=== PATIENT | male | born 1940 | race Caucasian/White ===

== ENCOUNTER 2016-12-13 14:28 | Inpatient (IN) ==
[2016-12-13 15:40] LABS: Bilirubin,Urine Negative (Negative); Blood,Urine Negative (Negative); Clarity,Urine Clear (Clear); Color,Urine Yellow (Yellow); Glucose,Urine (UA) Normal (Normal); Ketones,Urine Negative (Negative); Leukocyte Esterase,Urine Negative (Negative); Nitrite,Urine Negative (Negative); Protein,Urine Negative (Neg-Trace); Urobilinogen,Urine Normal (Normal)
[2016-12-13 15:58] LABS: Basophils % 0.9 %; Eosinophils # 0.1 K/mcL (0.0-0.6); Eosinophils % 3.4 %; Hematocrit 40.1 % (37.5-50.1); Hemoglobin 12.8 g/dL (12.9-16.9); Immature Granulocytes % 0.3 % (0-4); Lymphocytes # 0.9 K/mcL (0.6-4.6); Lymphocytes % 25.3 %; Mean Corpuscular HGB Conc 31.9 g/dL (31.6-35.5); Mean Corpuscular Hemoglobin 25.5 pg (28.0-33.3); Mean Corpuscular Volume 79.9 fL (83.0-100.0); Mean Platelet Volume 10.8 fL (9.4-12.4); Monocytes # 0.4 K/mcL (0.0-1.3); Monocytes % 10.2 %; Neutrophils # 2.1 K/mcL (1.6-8.9); Platelet Count 239 K/mcL (140-400); Red Blood Count 5.02 M/mcL (4.19-5.50); Red Cell Distribution Width 14.8 % (11.5-14.5); Segmented Neutrophils % 59.9 %
--- NOTE | 2016-12-13 16:05 | Emergency Department Note ---
Disposition Clinical Impression: Acute electrocardiogram changes Syncope Qualifiers: Syncope type: unspecified Qualified Code(s): R55 - Syncope and collapse Disposition: Admitted As Inpatient Condition: Fair Time of Disposition: 18:02 Syncope HPI - General Chief Complaint: ED Syncope Stated Complaint: syncope, fall, needs repeat CT Time Seen by Provider: 12/13/16 14:40 Source: patient, EMS Limitations: no limitations Nursing Notes Reviewed: Yes Vital Signs Reviewed: Yes - History of Present Illness HPI Narrative: 76-year-old male with history of CAD status post stents 3, on aspirin and Plavix, he had an episode of syncope that he does not remember what the program was, he was just on the ground his said that he was passed out for 5 minutes, he arrives via EMS from the [facility], they did a CT scan that showed a questionable early subdural, and otherwise negative cardiac workup, Pt Subjective Complaint: loss of consciousness Onset (ago): hour(s) Duration: minutes(s) (5) Prodromal Symptoms: none Witnessed: no Injuries Sustained Associated with Event: none Current Symptoms: none History: none Treatments prior to arrival: none - Related Data Home Medications Medication Instructions Recorded Confirmed Aspirin Enteric Coated [Aspirin EC] 81 mg PO DAILY 01/29/15 12/13/16 Atorvastatin Calcium [Lipitor] 80 mg PO HS 01/29/15 12/13/16 Clopidogrel [Plavix] 75 mg PO DAILY 01/29/15 12/13/16 Omeprazole [Prilosec] 20 mg PO DAILY 01/29/15 12/13/16 Cholecalciferol (D-3) [Vitamin D] 1,000 unit PO DAILY 12/13/16 12/13/16 DiphenhydraMINE [Benadryl] 50 mg PO TID PRN 12/13/16 12/13/16 Gabapentin [Neurontin] 900 mg PO TID 12/13/16 12/13/16 GuaiFENesin/Dextromethorphan 10 ml PO Q4H PRN 12/13/16 12/13/16 [Tussin Dm Syrup] Levothyroxine [Synthroid] 112 mcg PO 0612/13/16 12/13/16 Methocarbamol [Robaxin] 500 mg PO QID 12/13/16 12/13/16 Mirtazapine 7.5 mg PO HS 12/13/16 12/13/16 Naproxen [Naprosyn] 500 mg PO BID PRN 12/13/16 12/13/16 Venlafaxine XR (24 HR) [Effexor XR] 75 mg PO DAILY 12/13/16 12/13/16 Allergies Allergy/AdvReac Type Severity Reaction Status Date / Time ciprofloxacin [From Cipro] Allergy See Verified 12/13/16 14:34 Comments clams Allergy Swelling Verified 12/13/16 14:34 of Lip/Tongue/Throat All systems ED: reviewed and negative except as stated. Constitutional: Denies: fever, chills, weakness Cardiovascular: Denies: chest pain, palpitations Respiratory: Denies: cough, dyspnea Gastrointestinal: Denies: abdominal pain, nausea Genitourinary: Denies: urgency Musculoskeletal: Denies: back pain Neurological: Reports: other (Syncope). Denies: headache, weakness Psychiatric: Denies: anxiety, depression Endocrine: Denies: fatigue Hematological/Lymphatic: Denies: easy bleeding, easy bruising Past Medical History - Past Medical History Medical history: Reports: coronary artery disease, diabetes, GERD, hyperlipidemia, myocardial infarction Surgical history: Reports: other Psychiatric history: Reports: depression, PTSD - Social History Smoking Status: Former smoker Smokeless Tobacco Status: Yes Alcohol use: Reports: none Drug use: Reports: none Physical Exam Constitutional: Elderly male appears stated age, alert and oriented, in NAD, vital signs reviewed and wnl HEENT: NCAT, sclera anicteric, PERRLA bilaterally Neck: normal inspection, neck is supple, trachea midline Resp: normal chest inspection, CTA bilaterally, no resp distress CV: RRR, no m/g/r GI: normal inspection, Soft, NTND, BS present Neuro: A&O3, CN 2 through 12 grossly intact bilaterally, no gross motor or sensory deficits bilaterally MSK: normal inspection, bilateral UE and LE with normal ROM Skin: No rashes, skin warm, dry, intact - General Limitations: no limitations General appearance: alert, in no apparent distress Course Course Narrative: 76-year-old male with syncope, on our EKG he does have some hyperacute T waves and concerning upright QRS in V1, will repeat EKG cardiac workup as well as head CT to evaluate for possible subdural hematoma in the setting of aspirin and Plavix use and reassess - Reevaluation(s) Reevaluation #1: Reevaluation, Jesu spoke with the patient, please see her documentation , she recommended admission and we did admit to the hospitalist service, however the patient refused understanding that the risks include but are not limited to and disability from possible cardiac etiology for his syncope understood these risks, and requested to sign out. AGAINST MEDICAL ADVICE Time: 17:12 Reevaluation #2: After long discussion with the patient, he now agrees to stay for admission, cardiology consultation and further evaluation given his EKG changes. Syncopal history history of CAD, patient changed his mind, I did discuss this with the hospitalist via pager, patient stable at the time of the disposition for inpatient admission Time: 18:01 - Consultations Consultation #1: I spoke with Dr. Mcleod, she noted the EKG changes, recommended a repeat EKG however do not think there is any acute ischemic eval she stated that the patient had first-degree AV block right ventricular conduction delay different than 2015 with T waves that are prominent but also seen on the EKG in 2014 no acute findings on today's EKG Time: 17:11 Vital Signs Temperature 98.4 F 12/13/16 14:34 Pulse Rate 57 12/13/16 14:34 Respiratory Rate 17 12/13/16 14:34 Blood Pressure 164/50 12/13/16 14:34 O2 Sat by Pulse Oximetry 100 12/13/16 14:34 Temperature 98.4 F 12/13/16 14:34 Pulse Rate 55 12/13/16 17:38 Respiratory Rate 17 12/13/16 17:53 Blood Pressure 173/88 12/13/16 17:53 O2 Sat by Pulse Oximetry 98 12/13/16 17:38 Oxygen Delivery Oxygen Delivery Room Air Syncope - [facility] Narrative Medical decision making narrative: 76-year-old male with a concerning history of syncope in the setting of known CAD, status post 3 stents, patient advised for 5 minutes, his EKG showed hyperacute T waves early repolarization upright leads in V1 concern for De winter's ischemic changes in V2 and V3 however clinical documentation developer did review the EKG I did place cardiology consult is initial troponin at the [place] repeat troponin was 0.03, negative. Patient seemed dynamically stable, initially requests to go AGAINST MEDICAL ADVICE and then subsequently accepted inpatient admission for further cardiology workup - Differential Diagnosis Likely: syncope due to orthostatic hypotension, vasovagal syncope - Medical Records Medical records reviewed: Yes I reviewed the patient's medical records. - Lab Data Lab results reviewed: Yes I reviewed the patient's lab results. Result diagrams: 12/13/16 15:50 12/13/16 15:50 Lab Results 12/13/16 12/13/16 12/13/16 Range/Units 15:17 15:50 15:50 WBC 3.5 L (4.3-11.1) K/mcL RBC 5.02 (4.19-5.50) M/mcL Hgb 12.8 L (12.9-16.9) g/dL Hct 40.1 (37.5-50.1) % MCV 79.9 L (83.0-100.0) fL MCH 25.5 L (28.0-33.3) pg MCHC 31.9 (31.6-35.5) g/dL RDW 14.8 H (11.5-14.5) % Plt Count 239 (140-400) K/mcL MPV 10.8 (9.4-12.4) fL Immature Gran % 0.3 (0-4) % Seg Neutrophils % 59.9 % Lymphocytes % 25.3 % Monocytes % 10.2 % Eosinophils % 3.4 % Basophils % 0.9 % Neutrophils # 2.1 (1.6-8.9) K/mcL Lymphocytes # 0.9 (0.6-4.6) K/mcL Monocytes # 0.4 (0.0-1.3) K/mcL Eosinophils # 0.1 (0.0-0.6) K/mcL Basophils # 0.0 (0.0-0.2) K/mcL Sodium 134 L (136-145) mEq/L Potassium 4.5 (3.5-4.5) mEq/L Chloride 99 (98-109) mEq/L Carbon Dioxide 27 (19-29) mEq/L BUN 16 (8-26) mg/dL Creatinine 1.13 (0.72-1.25) mg/dL Est GFR ( Amer) > 60 (> 60) Est GFR (Non-Af Amer) > 60 (> 60) BUN/Creatinine Ratio 14 (6-26) Glucose 86 (70-99) mg/dL Calculated Osmolality 278 L (280-300) Calcium 9.9 (8.6-10.8) mg/dL Troponin I (0-0.03) ng/mL Urine Color Yellow (Yellow) Urine Clarity Clear (Clear) Urine pH 7.0 (5.0-8.0) pH Units Ur Specific [place] 1.010 (1.010-1.025) Urine Protein Negative (Neg-Trace) mg/dL Urine Glucose (UA) Normal (Normal) mg/dL Urine Ketones Negative (Negative) mg/dL Urine Blood Negative (Negative) Urine Nitrite Negative (Negative) Urine Bilirubin Negative (Negative) Urine Urobilinogen Normal (Normal) mg/dL Ur Leukocyte Esterase Negative (Negative) 12/13/16 Range/Units 15:50 WBC (4.3-11.1) K/mcL RBC (4.19-5.50) M/mcL Hgb (12.9-16.9) g/dL Hct (37.5-50.1) % MCV (83.0-100.0) fL MCH (28.0-33.3) pg MCHC (31.6-35.5) g/dL RDW (11.5-14.5) % Plt Count (140-400) K/mcL MPV (9.4-12.4) fL Immature Gran % (0-4) % Seg Neutrophils % % Lymphocytes % % Monocytes % % Eosinophils % % Basophils % % Neutrophils # (1.6-8.9) K/mcL Lymphocytes # (0.6-4.6) K/mcL Monocytes # (0.0-1.3) K/mcL Eosinophils # (0.0-0.6) K/mcL Basophils # (0.0-0.2) K/mcL Sodium (136-145) mEq/L Potassium (3.5-4.5) mEq/L Chloride (98-109) mEq/L Carbon Dioxide (19-29) mEq/L BUN (8-26) mg/dL Creatinine (0.72-1.25) mg/dL Est GFR ( Amer) (> 60) Est GFR (Non-Af Amer) (> 60) BUN/Creatinine Ratio (6-26) Glucose (70-99) mg/dL Calculated Osmolality (280-300) Calcium (8.6-10.8) mg/dL Troponin I 0.03 (0-0.03) ng/mL Urine Color (Yellow) Urine Clarity (Clear) Urine pH (5.0-8.0) pH Units Ur Specific [place] (1.010-1.025) Urine Protein (Neg-Trace) mg/dL Urine Glucose (UA) (Normal) mg/dL Urine Ketones (Negative) mg/dL Urine Blood (Negative) Urine Nitrite (Negative) Urine Bilirubin (Negative) Urine Urobilinogen (Normal) mg/dL Ur Leukocyte Esterase (Negative) - Radiology Data Radiology results reviewed: Yes I reviewed the patient's radiology results. Head CT 12/13/16 15:01 IMPRESSION: No acute intracranial abnormality. D/ / Dylan Dillon MD / Dylan Dillon MD Interpreting Provider: Dylan Dillon MD Chest X-Ray 12/13/16 16:21 IMPRESSION: No acute cardiopulmonary disease. D/ / Albert Atkinson MD / Albert Atkinson MD Interpreting Provider: Albert Atkinson MD - EKG Data EKG attestation: Yes I reviewed and interpreted this EKG. EKG shows normal: sinus rhythm Rate: normal (57 bpm ME to 67 QRS [address] segment elevations or depressions, first-degree AV block with right bundle branch block, hyperacute T waves in leads V2 and V3 1445;, repeat EKG at 1548 shows similar pattern with no acute ST segment changes) Counselor/QRS: normal Interpretation: nonspecific ST-T wave changes (Change from EKG in 2015) - Core Measures AMI Core Measures Followed: No Attestation Statement - Attestation Attestation: I personally interviewed and examined this patient and my medical decision- making was reviewed with the ED Resident Physician, Dr. Hernandez I agree with the documented findings, disposition and treatment plan as described except to the extent set forth below. Patient is a 76-year-old white male who was brought to us as a transfer from the [facility] by EMS for "request for repeat head CT". Patient with history of CAD and stent placement 3, who presents to the emergency department after having a syncopal episode today. [facility], labs, which were reported as "normal" and a head CT which the physician by phone and stated that there was some tiny defect seen between the dura and the skull and the etiologies was requesting repeat imaging. The doctor there stated he was going to send the patient home but was unable to get repeat CT imaging and their facility would not keep the patient for observation for repeat imaging. Patient describes syncopal episode with no preceding symptoms in which his reports that he was unresponsive for up to 5 minutes. Patient had no symptoms following the episode. On arrival he denies any complaints of pain, no chest pain or pressure no shortness of breath, no diaphoresis, no nausea vomiting, no abdominal pain or flank pain, no bowel changes or urinary symptoms. Patient denies any dizziness or lightheadedness with positional changes. Patient denies any headaches or visual changes and no focal neurologic deficits either before or since the incident. Patient's vital signs are stable on arrival and he is in no acute distress. His EKG obtained in the emergency department on arrival was significantly different from his prior EKG which shows what appears to be a right bundle branch block with T-wave concordance. This is significantly changed from his initial EKG. We reevaluated the patient and patient denies any form of chest pain pressure or heaviness at this time. We also repeated the EKG and saw similar findings. We faxed the EKG to the clinical documentation developer on-call today Dr. Ora lancaster who interpreted the EKG and states that she felt this was related to bundle branch and conduction abnormalities in [place] for ischemic change and recommended serial cardiac enzymes. I agree with patient's physical exam findings as documented. Labs as well as chest x-ray and repeat CT head imaging here were all within normal limits. Concerned with patient's syncopal episode associated with an abnormal EKG which is new. Recommended the patient be admitted for further cardiac evaluation and continued monitoring. Patient agrees with plan case discussed with hospitalist and cardiology consulted.
[2016-12-13 16:11] LABS: BUN/Creatinine Ratio 14 (6-26); Blood Urea Nitrogen 16 mg/dL (8-26); Calcium 9.9 mg/dL (8.6-10.8); Carbon Dioxide 27 mEq/L (19-29); Chloride 99 mEq/L (98-109); Glucose 86 mg/dL (70-99); Osmolality,Calculated 278 (280-300); Potassium 4.5 mEq/L (3.5-4.5); Sodium 134 mEq/L (136-145); eGFR For African Americans > 60 (> 60); eGFR For Non-African Americans > 60 (> 60)
[2016-12-13] MEDS ORDERED: Naloxone 0.4 MG/ML INJ IVP PRN (21:36)
--- NOTE | 2016-12-13 21:36 | Internal Med History&Physical ---
Date of Encounter: 12/13/16 Time of Encounter: 21:36 Assessment and Plan (1) Syncope Current visit: Yes Status: Acute Cause is unknown at this time. Will obtain orthostatic vitals; echocardiogram, EEG, Cardiology consult. Consider MRI / Neurology consult based on EEG Qualifiers: Syncope type: unspecified Qualified Code(s): R55 - Syncope and collapse (2) Type 2 diabetes mellitus Current visit: Yes Status: Chronic Sliding scale insulin Qualifiers: Diabetes mellitus complication status: with unspecified complications Diabetes mellitus jail insulin use: without jail use Qualified Code( s): E11.8 - Type 2 diabetes mellitus with unspecified complications (3) CAD (coronary artery disease) Current visit: Yes Status: Chronic Continue home medications. Check Troponin Qualifiers: Coronary Disease-Associated Artery/Lesion type: unspecified vessel or lesion type [place] vs. transplanted heart: [place] heart Associated angina: without angina Qualified Code(s): I25.10 - Atherosclerotic heart disease of [place] coronary artery without angina pectoris (4) Hypothyroidism Current visit: Yes Status: Chronic Continue Synthroid Qualifiers: Hypothyroidism type: unspecified Qualified Code(s): E03.9 - Hypothyroidism , unspecified Internal Medicine - H&P: HPI Chief complaint: syncope Admitted From: Emergency Dept Plans for Post Hospital Care: Home History of present illness: Mr. Nina is a 76 year old male with history of CAD status post stents 3, hypothyroidism, PTSD, type 2 diabetes mellitus, hypertension, depression, apparently had an episode of syncope at home. He was planning to go out to shop , but apparently fell backwards and he does not remember what happened. His fiancee was closed by, apparently patient reportedly passed out for about 5 minutes. Pt reports that his fiance apparently told him that he had some shaking of upper extremities. He denies dizziness and a running symptoms before the episode. He denies chest pain, shortness of breath, cough, expectoration, headache, nausea, vomiting, fever, chills. He was evaluated at [facility] and CT head reported subtle subcalvarial hyperattenuating foci redundantly in the left pectoral region and most likely artifactual. However given subtle overlapping scalp edema, very tiny extra-axial hemorrhage be difficult to entirely exclude. Consider short-term repeat CT for re- assessment to exclude subtle extra-axial subdural hematoma. Patient is transferred to ER at [facility]. Repeat CT head shows no acute intracranial abnormality. Patient is admitted to the hospitalist service for further workup and management of his syncope. Past Med Surg Social Fam HX - Past Medical History Medical history: coronary artery disease, diabetes, GERD, hyperlipidemia, myocardial infarction Psychiatric history: depression, PTSD - Past Surgical History Surgical History: other - Social History Smoking Status: Former smoker Smokeless Tobacco Status: Yes Alcohol use: none Drug use: none - Family History Father Hx Family Cancer: Yes (unknown) Internal Medicine - H&P: Meds Aspirin Enteric Coated [Aspirin EC] 81 mg PO DAILY 01/29/15 [History] Atorvastatin Calcium [Lipitor] 80 mg PO HS 01/29/15 [History] Clopidogrel [Plavix] 75 mg PO DAILY 01/29/15 [History] Omeprazole [Prilosec] 20 mg PO DAILY 01/29/15 [History] Cholecalciferol (D-3) [Vitamin D] 1,000 unit PO DAILY 12/13/16 [History] DiphenhydraMINE [Benadryl] 50 mg PO TID PRN 12/13/16 [History] Gabapentin [Neurontin] 900 mg PO TID 12/13/16 [History] GuaiFENesin/Dextromethorphan [Tussin Dm Syrup] 10 ml PO Q4H PRN 12/13/16 [ History] Levothyroxine [Synthroid] 112 mcg PO 0630 12/13/16 [History] Methocarbamol [Robaxin] 500 mg PO QID 12/13/16 [History] Mirtazapine 7.5 mg PO HS 12/13/16 [History] Naproxen [Naprosyn] 500 mg PO BID PRN 12/13/16 [History] Venlafaxine XR (24 HR) [Effexor XR] 75 mg PO DAILY 12/13/16 [History] Allergies ciprofloxacin [From Cipro] Allergy (Verified 12/13/16 14:34) See Comments patient unsure of reaction clams Allergy (Verified 12/13/16 14:34) Swelling of Lip/Tongue/Throat All Systems PM: A 10-system review of systems was performed and is negative for pertinent findings except as documented above in the HPI. - Constitutional Vitals: Temp Pulse Resp BP Pulse Ox 97.6 F 57 14 165/84 99 12/13/16 19:24 12/13/16 19:24 12/13/16 19:24 12/13/16 19:24 12/13/16 19:24 Exam: General: Not in acute distress at the time of my evaluation HEENT: Oral mucosa is moist. No conjunctival palor or scleral icterus. Small laceration on the left occipital scalp area Neck: No obvious neck swellings Lungs: Clear to auscultation Cardiac: Regular rate and rhythm. No significant murmurs Abdomen: Soft, non tender. Bowel sounds present Genitourinary: No jones catheter Neurological: Alert and oriented. No gross localizing deficits Psych: Not aggressive or agitated Extremities: no significant leg edema Skin: No generalized rash Internal Med - H&P Results - Labs CBC & Chem 7: 12/14/16 03:18 12/14/16 03:18 Labs: UA is negative - EKG Data -: EKG Interpreted by Myself EKG shows normal: sinus rhythm Rate: bradycardia - EKG Data EKG comments: First degree AV block; RBBB 12/14/16 06:55 - Impressions ITS Impressions Head CT 12/13/16 15:01 IMPRESSION: No acute intracranial abnormality. D/ / Dylan Dillon MD / Dylan Dillon MD Interpreting Provider: Dylan Dillon MD Chest X-Ray 12/13/16 16:21 IMPRESSION: No acute cardiopulmonary disease. D/ / Albert Atkinson MD / Albert Atkinson MD Interpreting Provider: Albert Atkinson MD
[2016-12-13] MEDS: Methocarbamol 500 MG TABLET PO SCH (22:42)
[2016-12-13] MEDS: Mirtazapine 15 MG TABLET PO SCH (22:43)
[2016-12-14 03:33] LABS: Basophils % 1.2 %; Eosinophils # 0.2 K/mcL (0.0-0.6); Eosinophils % 6.5 %; Hematocrit 37.2 % (37.5-50.1); Hemoglobin 12.2 g/dL (12.9-16.9); Immature Granulocytes % 0.6 % (0-4); Lymphocytes # 1.1 K/mcL (0.6-4.6); Lymphocytes % 32.4 %; Mean Corpuscular HGB Conc 32.8 g/dL (31.6-35.5); Mean Corpuscular Hemoglobin 26.3 pg (28.0-33.3); Mean Corpuscular Volume 80.2 fL (83.0-100.0); Mean Platelet Volume 10.9 fL (9.4-12.4); Monocytes # 0.5 K/mcL (0.0-1.3); Monocytes % 13.5 %; Neutrophils # 1.6 K/mcL (1.6-8.9); Platelet Count 217 K/mcL (140-400); Red Blood Count 4.64 M/mcL (4.19-5.50); Red Cell Distribution Width 14.7 % (11.5-14.5); Segmented Neutrophils % 45.8 %
[2016-12-14 03:45] LABS: BUN/Creatinine Ratio 18 (6-26); Blood Urea Nitrogen 18 mg/dL (8-26); Calcium 9.3 mg/dL (8.6-10.8); Carbon Dioxide 25 mEq/L (19-29); Chloride 102 mEq/L (98-109); Glucose 103 mg/dL (70-99); Osmolality,Calculated 282 (280-300); Potassium 4.3 mEq/L (3.5-4.5); Sodium 135 mEq/L (136-145); eGFR For African Americans > 60 (> 60); eGFR For Non-African Americans > 60 (> 60)
[2016-12-14] MEDS ORDERED: Dextrose Gel 15 GM PO PRN ×2 (07:00)
[2016-12-14] MEDS ORDERED: D5% in Water 1,000 ML IVC PRN (07:00)
[2016-12-14] MEDS ORDERED: *HR* Dextrose 50 % in Water (Syg) 50 ML SYRINGE IVP PRN (07:00)
[2016-12-14] MEDS: Insulin LISPRO 300 UNITS/3 ML VIAL SQ SCH ×3 (08:27→16:53)
[2016-12-14] MEDS: Venlafaxine XR (24 HR) 75 MG CAP.ER.24H PO SCH (09:16)
[2016-12-14] MEDS: Methocarbamol 500 MG TABLET PO SCH ×4 (09:16→20:36)
[2016-12-14] MEDS: Aspirin Enteric Coated 81 MG Tablet PO SCH (09:16)
[2016-12-14] MEDS: Gabapentin 300 MG CAPSULE PO SCH ×4 (09:16→20:36)
[2016-12-14] MEDS: Cholecalciferol (D-3) 1,000 UNIT TABLET PO SCH (09:17)
--- NOTE | 2016-12-14 09:37 | Cardiology Consult Note ---
Date of Encounter: 12/14/16 Time of Encounter: 08:30 Assessment and Plan (1) Syncope Current Visit: Yes Status: Acute Presents with syncopal episode yesterday, reportedly lost consciousness nearly 5 minutes. Event was unprovoked--occurred while walking to door. No significant findings on telemetry since admission, no AVB, pause, arrhythmia noted. Questionable hemorrhage or hematoma vs. artifact at [place]. Head CT at [facility] negative for acute process. Recommend Neurology consult. Continue to monitor telemetry, check orthostatics, and obtain echocardiogram. Further recommendations to follow. Qualifiers: Syncope type: unspecified Qualified Code(s): R55 - Syncope and collapse (2) Ischemic cardiomyopathy Current Visit: Yes Status: Acute Hx of CAD s/p PCI--patient reports most recent stent at [place] ~2 years ago. Last TTE at [facility] demonstrated a LVEF, 35%. No recent TTE records available. Appears euvolemic upon exam. Troponin negative x3. CXR without acute findings. Concerning ECG changes noted from previous. Continue home CV medications including asa, statin, and plavix. No betablocker due to bradycardia. Echocardiogram pending, further recommendations to follow. Discussion w patient/family: The assessment and plan as outlined above was discussed with the patient and/or family members who expressed understanding and agreement. All questions were answered. Thank you for involving us in the care of your patient. Please call with any questions. History of Present Illness Consult date: 12/14/16 Requesting physician: Esteban Mendiola Consult reason: Syncope Chief complaint: Syncopal episode History of present illness: Mr. Nina is a 76 year old male with PMHx significant for CAD s/p PCI, hypothyroidism, PTSD, DMII, HTN, tongue CA (remission) and depression who initially presented to the [place] urgent care after syncopal episode at home. Patient does not have any recollection of the event, he states he was walking out of the house to go to the grocery store when he suddenly fell backward. Event was witnessed by fiance who stated patient lost consciousness for nearly five minutes and arms were shaking and eyes rolled back in head during event. He notes that he was in his normal state of health up until event and denies any new medications. Reports follows with [place] [facility]. Head CT at [place] inconclusive--questionable small hematoma or hemorrhage vs. artifact, he was sent to [facility] for further evaluation and imaging. Upon arrival to [facility] troponin negative x3. ECG (T wave) changes noted when compared to previous. Prior CV testing ([facility]): TTE 03/2013: LVEF 35%, Normal right ventricular size and function, the apex , apical inferior, mid inferior, apical anterior, apical septal, apical lateral and mid inferior lateral wolfe were hypokinetic.All other wall segments showed normal motion. [facility] 04/09/13: Stent w/ PTCA Single Major Vessel (Occluded proximal circumflex artery) Stent w/ PTCA another major vessel (95% mid LAD stenosis); existing 60-70% mRCA stenosis *patient reports [facility] with stent at [facility] 2 years ago. Past Med Surg Social Fam HX - Past Medical History Medical history: cardiomyopathy (ischemic), CHF (systolic, LVEF 35% per TTE in 2012. ), coronary artery disease, diabetes, GERD, hyperlipidemia, hypertension, myocardial infarction Psychiatric history: depression, PTSD - Past Surgical History Surgical History: angioplasty/stent - Social History Smoking Status: Former smoker Smokeless Tobacco Status: Yes Alcohol use: none (reports former) Drug use: none - Family History Father Hx Family Cancer: Yes (unknown) Medications and Allergies Aspirin Enteric Coated [Aspirin EC] 81 mg PO DAILY 01/29/15 [History] Atorvastatin Calcium [Lipitor] 80 mg PO HS 01/29/15 [History] Clopidogrel [Plavix] 75 mg PO DAILY 01/29/15 [History] Omeprazole [Prilosec] 20 mg PO DAILY 01/29/15 [History] Cholecalciferol (D-3) [Vitamin D] 1,000 unit PO DAILY 12/13/16 [History] DiphenhydraMINE [Benadryl] 50 mg PO TID PRN 12/13/16 [History] Gabapentin [Neurontin] 900 mg PO TID 12/13/16 [History] GuaiFENesin/Dextromethorphan [Tussin Dm Syrup] 10 ml PO Q4H PRN 12/13/16 [ History] Levothyroxine [Synthroid] 112 mcg PO 0630 12/13/16 [History] Methocarbamol [Robaxin] 500 mg PO QID 12/13/16 [History] Mirtazapine 7.5 mg PO HS 12/13/16 [History] Naproxen [Naprosyn] 500 mg PO BID PRN 12/13/16 [History] Venlafaxine XR (24 HR) [Effexor XR] 75 mg PO DAILY 12/13/16 [History] Allergies ciprofloxacin [From Cipro] Allergy (Verified 12/13/16 14:34) See Comments patient unsure of reaction clams Allergy (Verified 12/13/16 14:34) Swelling of Lip/Tongue/Throat All Systems Review: A 10-system review of systems was performed and is negative for pertinent findings except as documented above in the HPI. - Cardiovascular Cardiovascular: as per HPI Physical Examination Vital Signs, Last 4 Hours Temp Pulse Resp BP Pulse Ox 12/14/16 06:36 97.5 F L 48 17 128/74 97 General: Conversant, No Apparent Distress HEENT: Atraumatic, Normocephaly, Mucus Membranes Moist Neck: No JVD, Normal carotid pulses Cardiac: Reg Rate and Rhythm, Normal S1 and S2, No Murmur Lungs: Normal Breath Sounds, No Wheeze, Rales, Rhonchi Neuro: Alert and responsive, No focal deficits noted Abdomen: Soft, Non-Tender Skin: No rashes noted on visualized skin Musculoskeletal: No Chest Wall Tenderness Extremities: No Clubbing, No Cyanosis, No Edema, Normal Pulses Results 12/14/16 03:18 12/14/16 03:18 Lab Results 12/13/16 12/14/16 12/14/16 21:56 03:18 03:18 WBC 3.4 L Hgb 12.2 L Hct 37.2 L Plt Count 217 Sodium Potassium Chloride Carbon Dioxide BUN Creatinine Glucose Calcium Magnesium Troponin I 0.03 0.03 12/14/16 03:18 WBC Hgb Hct Plt Count Sodium 135 L Potassium 4.3 Chloride 102 Carbon Dioxide 25 BUN 18 Creatinine 1.00 Glucose 103 H Calcium 9.3 Magnesium 2.0 Troponin I - Imaging and Cardiology Chest Xray: report reviewed Echo: report reviewed Cardiac cath: report reviewed Other Results: 12 hour tele: avg HR=53 SB, RBBB. - EKG Interpretation EKG results cardiology: personally reviewed Consult Discharge Plan - Plan Instructions: Near Syncope (ED) [facility] [Primary Care Provider] -
--- NOTE | 2016-12-14 13:36 | EEG/EMG/Oth Biometrics Report ---
EEG Procedure Report Date of procedure: 12/14/16 EEG Procedure: Routine EEG Procedure Note: This EEG was acquired with standard international 1020 system with EKG recording. The background EEG activity was characterized by the presence of posterior dominant alpha rhythm with the best frequency up to 9.5 Hz.. The background activity was reactive to eye openings. Sleep stages were characterized by the presence of background fragmentation, vertex waves, K complexes, and sleep spindles. There are no electrographic seizures identified during this tracing. There are no epileptiform discharges and focal slowing noted during this recording. Photic stimulation produced no abnormalities. Hyperventilation procedure was not performed EKG tracing showed no significant cardiac dysrhythmia. Impression: This is essentially a normal awake and asleep EEG. Clinical Correlation: Normal EEGs, however, do not exclude epilepsy. Clinical correlation advised.
--- NOTE | 2016-12-14 13:38 | Electrocardiograph Report ---
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
--- NOTE | 2016-12-14 13:39 | Internal Med Progress Note ---
Date of Encounter: 12/14/16 Time of Encounter: 09:45 - Assessment and plan (1) Syncope Current Visit: Yes Status: Acute Assessment and plan: Patient reports syncopal episode yesterday review was preparing to leave to run an errand, he fell backwards, hit his head. Bystander says that his hands were jerking bilaterally. He has no memory of events at all. He does not report what appears to be a post ictal phase afterwards. He said he was immediately alert and awake without confusion or loss of bowel and bladder control. He has no prior history of this in the past. He does report dizzy spells for the last 2 weeks, he primarily with exertion. He denies chest pain, dizziness, headache , shortness of breath prior to event. Also consciousness was approximately 5 minutes. EEG is not done yet, echocardiogram results are still pending. Cardiology is following. Recommend continuing telemetry and checking TTE. Ischemic evaluation. Depending on the echo findings we will decide upon stress test versus LHC. They will continue to follow. I appreciate the recommendations and consultation. Patient is currently pain-free and denies dizziness, shortness of breath, chest pain, or headache. Continue telemetry Echo results pending Cardio following Head CT 12/13/16 15:01 IMPRESSION: No acute intracranial abnormality. D/ / Dylan Dillon MD / Dylan Dillon MD Interpreting Provider: Dylan Dillon MD Chest X-Ray 12/13/16 16:21 IMPRESSION: No acute cardiopulmonary disease. D/ / Albert Atkinson MD / Albert Atkinson MD Interpreting Provider: Albert Atkinson MD Qualifiers: Syncope type: unspecified Qualified Code(s): R55 - Syncope and collapse (2) Hypothyroidism Current Visit: Yes Status: Chronic Assessment and plan: Chronic. Continue home medications. Qualifiers: Hypothyroidism type: unspecified Qualified Code(s): E03.9 - Hypothyroidism , unspecified (3) CAD (coronary artery disease) Current Visit: Yes Status: Chronic Assessment and plan: Troponins are negative. Continue aspirin, statin, Plavix. Qualifiers: Coronary Disease-Associated Artery/Lesion type: unspecified vessel or lesion type [place] vs. transplanted heart: jackson heart Associated angina: without angina Qualified Code(s): I25.10 - Atherosclerotic heart disease of jack[place] coronary artery without angina pectoris (4) Diabetes Current Visit: No Status: Acute Assessment and plan: Sliding scale insulin. Accu-Cheks before meals at bedtime Diabetic diet Qualifiers: Diabetes mellitus type: type 2 Diabetes mellitus complication status: without complication Diabetes mellitus buttermaker continuous churn insulin use: without correction use Qualified Code(s): E11.9 - Type 2 diabetes mellitus without complications - Time Spent With Patient less than 15 minutes - Subjective Interval history: Patient reports that he was getting ready to leave to run an errand and he fell backwards, hit his head, denise says that his hands were jerking bilaterally. Patient has no memory of the events. She reports approximately 5 minute loss of consciousness, patient does not describe a postictal episode after. He says that he was awake and got right up and denies confusion. Prior to the event he denied headache, dizziness, shortness of breath, chest pain and he has no history of syncope in the past. He reports he has been having dizzy spells for about 2 weeks, states that it is normally with exertion. 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 At this time echo results are not back yet, EEG is still ordered and not done yet. Patient denies chest pain at this time. He also denies any dizziness, shortness of breath, or headache at this time. - Constitutional Vitals: Temp Pulse Resp BP Pulse Ox 98.0 F 53 16 136/72 99 12/14/16 11:23 12/14/16 11:23 12/14/16 11:23 12/14/16 11:23 12/14/16 11:23 General appearance: Present: cooperative, A&O X 3, pleasant, no acute distress, answers questions appropriately - Head Head exam: Present: normal inspection - Eye Eye exam: Present: EOMI, normal appearance, PERRL, conjuntiva pink. Absent: nystagmus - ENT ENT exam: Present: mucous membranes moist, normal exam - Neck Neck exam general surgery: Present: normal inspection. Absent: lymphadenopathy , tenderness - Respiratory Respiratory exam: Present: CTAB. Absent: rales, respiratory distress, rhonchi, stridor, wheezes - Cardiovascular Cardiovascular exam: Present: RRR, +S1, +S2. Absent: diastolic murmur, systolic murmur - GI/Abdominal GI/Abdominal exam: Present: soft. Absent: hepatomegaly, normal bowel sounds, tenderness - Extremities Exam Extremities exam: Present: normal inspection, warm, radial pulses palpable and symetrical. Absent: pedal edema, tenderness - Neurological Exam Neurological exam: Present: alert, oriented X3, no focal deficits, strengths equal and symetr throughout. Absent: facial droop, speech deficit Internal Medicine: Result - Labs CBC & Chem 7: 12/14/16 03:18 12/14/16 03:18 Labs: Short CBC 12/14/16 Range/Units 03:18 WBC 3.4 L (4.3-11.1) K/mcL Hgb 12.2 L (12.9-16.9) g/dL Hct 37.2 L (37.5-50.1) % Plt Count 217 (140-400) K/mcL Neutrophils # 1.6 (1.6-8.9) K/mcL BMP 12/14/16 03:18 Sodium 135 L Potassium 4.3 Chloride 102 Carbon Dioxide 25 BUN 18 Creatinine 1.00 Glucose 103 H Calcium 9.3 Cardiac Enzymes 12/13/16 12/14/16 Range/Units 21:56 03:18 Troponin I 0.03 0.03 (0-0.03) ng/mL Consult Discharge Plan - Plan Instructions: Near Syncope (ED) [facility]: [facility] [Primary Care Provider] -
--- NOTE | 2016-12-14 13:40 | Electrocardiograph Report ---
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
--- NOTE | 2016-12-14 18:46 | Neurology - Consult Note ---
Date of Encounter: 12/14/16 Time of Encounter: 18:34 Assessment and Plan (1) Syncope Current Visit: Yes Status: Acute This patient developed an episode of syncope from standing position without any warning, associated with body stiffening, falling and may few myoclonic jerking activity no urinary incontinence or tongue biting. EEG returns normal study, this is unlikely a seizure. new onset seizure activity in elderly patients tends to be partial and not generalized. Will not recommend antiepileptic therapy at this time. W Will recommend obtaining an MRI of brain without contrast, carotid artery doplex study. Please continue medical and supportive care Qualifiers: Syncope type: unspecified Qualified Code(s): R55 - Syncope and collapse History of Present Illness Chief complaint: syncope vs seizure HPI: Mr. Nina is a 76 year old male with PMH significant for HTn, hyperlipidemia, GERD, CAD, CHF who developed an episode of passing out and head concussion. This occurred two days ago at evening hours. He was feeling fine and did not have any warning and was reach the door and that was the last thing he remembered. He was witnessed by his that his body stiffened like a board before he fell and hit the back of his head. He was out for about 5 minutes by his 's word. he was told that after he fell his face was crooked and his initially thought that he had a stroke. After he came to, he does not want to go to ER but his was adamant that he needed to go. At outside hospital he had CT of head which was reported an artifact that is unlikely intracranial small bleed. he was transferred here for further evaluation. Repeat CT of head was read as normal. Clinically, patient's symptoms resolved. Denies any new neurological discomforts. He states that he has fallen before but this is the first time he lost his consciousness. No prior history of seizures. EEG already completed and showed normal study Past Med Surg Social Fam HX - Past Medical History Medical history: cardiomyopathy (ischemic), CHF (systolic, LVEF 35% per TTE in 2012. ), coronary artery disease, diabetes, GERD, hyperlipidemia, hypertension, myocardial infarction Psychiatric history: depression, PTSD - Past Surgical History Surgical History: angioplasty/stent - Social History Smoking Status: Former smoker Smokeless Tobacco Status: Yes Alcohol use: none (reports former) Drug use: none - Family History Father Hx Family Cancer: Yes (unknown) Medications and Allergies Aspirin Enteric Coated [Aspirin EC] 81 mg PO DAILY 01/29/15 [History] Atorvastatin Calcium [Lipitor] 80 mg PO HS 01/29/15 [History] Clopidogrel [Plavix] 75 mg PO DAILY 01/29/15 [History] Omeprazole [Prilosec] 20 mg PO DAILY 01/29/15 [History] Cholecalciferol (D-3) [Vitamin D] 1,000 unit PO DAILY 12/13/16 [History] DiphenhydraMINE [Benadryl] 50 mg PO TID PRN 12/13/16 [History] Gabapentin [Neurontin] 900 mg PO TID 12/13/16 [History] GuaiFENesin/Dextromethorphan [Tussin Dm Syrup] 10 ml PO Q4H PRN 12/13/16 [ History] Levothyroxine [Synthroid] 112 mcg PO 0630 12/13/16 [History] Methocarbamol [Robaxin] 500 mg PO QID 12/13/16 [History] Mirtazapine 7.5 mg PO HS 12/13/16 [History] Naproxen [Naprosyn] 500 mg PO BID PRN 12/13/16 [History] Venlafaxine XR (24 HR) [Effexor XR] 75 mg PO DAILY 12/13/16 [History] Allergies ciprofloxacin [From Cipro] Allergy (Verified 12/13/16 14:34) See Comments patient unsure of reaction clams Allergy (Verified 12/13/16 14:34) Swelling of Lip/Tongue/Throat All Systems: A 10-system review of systems was performed and is negative for pertinent findings except as documented above in the HPI. Physical Examination - Vital Signs Vital Signs: Initial Vital Signs Temp Pulse Resp BP Pulse Ox 98.4 F 57 17 164/50 100 12/13/16 14:34 12/13/16 14:34 12/13/16 14:34 12/13/16 14:34 12/13/16 14:34 - Constitutional General appearance: comfortable - Neurologic Sensorimotor examination: intact Detailed motor examination: grossly full strength in all extremities Motor examination - right side: 5/5: deltoids, biceps, triceps, wrist flexion, wrist extension, print color matcher, hip flexors, tibialis Anterior, quadriceps, toe extension (EHL), plantarflexion Motor examination - left side: 5/5: deltoids, biceps, triceps, wrist flexion, wrist extension, hip flexors, print color matcher, quadriceps, tibialis Anterior, toe extension (EHL), plantarflexion Detailed sensory examination: intact Posture: other (None) Reflexes: Biceps: 1+, Triceps: 1+, Brachioradialis: 1+, Patella: 1+, Achilles: 1 + Mental Status Examination: awake, alert, oriented to person, oriented to place, oriented to time, follows commands appropriately, answers questions appropriately, no agnosia, no aphasia, no aproxia Cranial nerve examination: PERRL, EOMI, visual ochoa intact, corneal reflexes brisk symmetrically, sensory to face intact, mastication intact, no facial asymmetry is present, no dysarthria, hearing is intact symmetrically, soft palate elevates bilaterally upon phonation, gag reflex intact, flexes SCM and trapezius muscles symmetrically with full power, tongue protrudes midline, no atrophy or facial fasiculations present Results - Laboratory Findings CBC and BMP: 12/14/16 03:18 12/14/16 03:18 Abnormal lab findings: Abnormal lab results WBC 3.4 K/mcL (4.3-11.1) L 12/14/16 03:18 Hgb 12.2 g/dL (12.9-16.9) L 12/14/16 03:18 Hct 37.2 % (37.5-50.1) L 12/14/16 03:18 MCV 80.2 fL (83.0-100.0) L 12/14/16 03:18 MCH 26.3 pg (28.0-33.3) L 12/14/16 03:18 RDW 14.7 % (11.5-14.5) H 12/14/16 03:18 Sodium 135 mEq/L (136-145) L 12/14/16 03:18 Glucose 103 mg/dL (70-99) H 12/14/16 03:18 Consult Discharge Plan - Plan Instructions: Near Syncope (ED) [facility]: [facility] [Primary Care Provider] - 12/28/16 10:15 am
[2016-12-14] MEDS: Mirtazapine 15 MG TABLET PO SCH (20:38)
[2016-12-14] MEDS ORDERED: Insulin LISPRO 300 UNITS/3 ML VIAL SQ SCH (21:00)
[2016-12-15] MEDS ORDERED: Regadenoson 0.4 MG/5 ML SYRINGE IVP ONE (06:11)
[2016-12-15] MEDS: Insulin LISPRO 300 UNITS/3 ML VIAL SQ SCH ×3 (08:01→16:14)
--- NOTE | 2016-12-15 08:17 | Cardiology Progress Note ---
Date of Encounter: 12/15/16 Time of Encounter: 08:15 Assessment and Plan (1) Syncope Current Visit: Yes Status: Acute Presents with syncopal episode, reportedly lost consciousness nearly 5 minutes. Reported to occur while he was walking. Patient reports no memory of event. He is a poor historian. No significant findings on telemetry since admission, no AVB, pause, arrhythmia noted. NSR with occasional PVC. HR in the 40's noted during nocturnal hours only. No daytime bradycardia seen. [facility]able [facility] negative for acute process. MRI showed no acute process. Neurology was consulted. EEG was negative. TTE: EF 45%. There is segmental systolic dysfunction. No significant valvular disease. EF improved compared to previous. EF 35% previously. Check orthostatic vitals. Stress test pending. Qualifiers: Syncope type: unspecified Qualified Code(s): R55 - Syncope and collapse (2) Ischemic cardiomyopathy Current Visit: Yes Status: Acute Hx of CAD s/p PCI--patient reports most recent stent at [place] ~2 years ago. Last TTE at [facility] demonstrated a LVEF, 35%. TTE this admission shows EF 45%. There is segmental systolic dysfunction. No significant valvular disease. Appears euvolemic upon exam. Troponin negative x3. CXR without acute findings. Concerning ECG changes noted from previous. Continue home CV medications including asa, statin, and plavix. No betablocker due to bradycardia. Discussion w patient/family: The assessment and plan as outlined above was discussed with the patient and/or family members who expressed understanding and agreement. All questions were answered. Thank you for involving us in the care of your patient. Please call with any questions. Objective General: Conversant, No Apparent Distress HEENT: Atraumatic, Normocephaly, Mucus Membranes Moist Neck: No JVD, Normal carotid pulses Cardiac: Reg Rate and Rhythm, Normal S1 and S2, No Murmur Lungs: Normal Breath Sounds, No Wheeze, Rales, Rhonchi Neuro: Alert and responsive, No focal deficits noted Abdomen: Soft, Non-Tender Skin: No rashes noted on visualized skin Musculoskeletal: No Chest Wall Tenderness Extremities: No Clubbing, No Cyanosis, No Edema, Normal Pulses Results 12/14/16 03:18 12/14/16 03:18 - Imaging and Cardiology Stress Test: pending Echo: report reviewed - EKG Interpretation EKG results cardiology: personally reviewed (SR with RBBB) Consult Discharge Plan - Plan Instructions: Near Syncope (ED) Referrals: [facility] [Primary Care Provider] - 12/28/16 10:15 am
[2016-12-15] MEDS: Methocarbamol 500 MG TABLET PO SCH ×2 (09:46→14:36)
[2016-12-15] MEDS: Venlafaxine XR (24 HR) 75 MG CAP.ER.24H PO SCH (09:46)
[2016-12-15] MEDS: Gabapentin 300 MG CAPSULE PO SCH ×2 (09:46→14:36)
[2016-12-15] MEDS: Cholecalciferol (D-3) 1,000 UNIT TABLET PO SCH (09:46)
[2016-12-15] MEDS: Aspirin Enteric Coated 81 MG Tablet PO SCH (09:46)
[2016-12-15 09:54] LABS: Basophils % 0.8 %; Eosinophils # 0.2 K/mcL (0.0-0.6); Eosinophils % 3.2 %; Hematocrit 46.6 % (37.5-50.1); Hemoglobin 14.9 g/dL (12.9-16.9); Immature Granulocytes % 0.8 % (0-4); Lymphocytes # 1.1 K/mcL (0.6-4.6); Lymphocytes % 22.7 %; Mean Corpuscular Volume 81.3 fL (83.0-100.0); Mean Platelet Volume 11.1 fL (9.4-12.4); Monocytes # 0.4 K/mcL (0.0-1.3); Monocytes % 8.3 %; Neutrophils # 3.2 K/mcL (1.6-8.9); Platelet Count 228 K/mcL (140-400); Red Blood Count 5.73 M/mcL (4.19-5.50); Segmented Neutrophils % 64.2 %
[2016-12-15 10:07] LABS: BUN/Creatinine Ratio 14 (6-26); Blood Urea Nitrogen 16 mg/dL (8-26); Calcium 9.9 mg/dL (8.6-10.8); Carbon Dioxide 27 mEq/L (19-29); Chloride 100 mEq/L (98-109); Chol/HDL Ratio 5.8 (0-4.9); Cholesterol 202 mg/dL (< 200); Glucose 101 mg/dL (70-99); HDL Cholesterol 35 mg/dL (40-59); LDL Cholesterol,Calculated 146 mg/dL (0-99); Osmolality,Calculated 281 (280-300); Potassium 4.6 mEq/L (3.5-4.5); Sodium 135 mEq/L (136-145); Triglycerides 103 mg/dL (< 150); eGFR For African Americans > 60 (> 60); eGFR For Non-African Americans > 60 (> 60)
--- NOTE | 2016-12-15 12:40 | Neurology Progress Note ---
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 Will not recommend anti -epileptic therapy.Will sign off at present time and please call if any questions Qualifiers: Syncope type: unspecified Qualified Code(s): R55 - Syncope and collapse Subjective Principal diagnosis: syncope and fall Interval history: Patient seen and examined. He is asymptomatic. no recurrent symptoms. MRI of brain showed no acute infarct. EEG was reported normal. Objective - Constitutional Vitals: Temp Pulse Resp BP Pulse Ox 97.8 F 52 17 135/75 100 12/15/16 10:45 12/15/16 10:45 12/15/16 10:45 12/15/16 10:45 12/15/16 10:45 - Neurological Exam Sensorimotor examination: Present: intact Motor Examination: Present: grossly full strength in all extremities Motor examination - left side: 5/5: deltoids, biceps, triceps, wrist flexion, wrist extension, hip flexors, undercoat sprayer, quadriceps, tibialis Anterior, toe extension (EHL), plantarflexion Sensation intact: Present: intact Posture: Present: other (None) Mental Status Examination: Present: awake, alert, oriented to person, oriented to place, oriented to time, follows commands appropriately, answers questions appropriately, no agnosia, no aphasia, no aproxia Cranial nerve examination: Present: PERRL, EOMI, visual ochoa intact, corneal reflexes brisk symmetrically, sensory to face intact, mastication intact, no facial asymmetry is present, no dysarthria, hearing is intact symmetrically, soft palate elevates bilaterally upon phonation, gag reflex intact, flexes SCM and trapezius muscles symmetrically with full power, tongue protrudes midline, no atrophy or facial fasiculations present Results - Laboratory Findings CBC and BMP: 12/15/16 09:22 12/15/16 09:22 Abnormal lab findings: Abnormal lab results RBC 5.73 M/mcL (4.19-5.50) H 12/15/16 09:22 MCV 81.3 fL (83.0-100.0) L 12/15/16 09:22 MCH 26.0 pg (28.0-33.3) L 12/15/16 09:22 RDW 15.0 % (11.5-14.5) H 12/15/16 09:22 Sodium 135 mEq/L (136-145) L 12/15/16 09:22 Potassium 4.6 mEq/L (3.5-4.5) H 12/15/16 09:22 Glucose 101 mg/dL (70-99) H 12/15/16 09:22 POC Glucose 105 (58-89) H 12/14/16 15:23 Cholesterol 202 mg/dL (< 200) H 12/15/16 09:22 LDL Cholesterol, Calc 146 mg/dL (0-99) H 12/15/16 09:22 HDL Cholesterol 35 mg/dL (40-59) L 12/15/16 09:22 Cholesterol/HDL Ratio 5.8 (0-4.9) H 12/15/16 09:22 Consult Discharge Plan - Plan Instructions: Near Syncope (ED) [facility] Provider[facility] - 12/28/16 10:15 am
[2016-12-15 14:53] VITALS: BP 153/80
--- NOTE | 2016-12-15 16:09 | Nuclear Medicine Stress Report ---
Regadenoson Nuclear Stress Name: Paul Nina Date of Study: 12/15/2016 Date: 1940 Ht: 70.0 in Medical Record#: [id number] Age: 76 Wt: 144.0 lb Gender: Male Order #: [id number] Location: [facility] Room: [facility] Supervising Provider: Edu Gan CNP Reading Physician: Donna Mcleod DO Ordering Physician: Nessa Ochoa CNP Primary Care Physician: [facility] Stress Technologist: Joe Owens, CHAR CONVEYOR TENDER CELLAR, [facility] Animal Killer: Balbri Pastor Indications: Syncope, Abnormal ECG Impression: There appears to be large infarct involving the inferior wall, inferolateral wall and lateral wall from base to apex which appears fixed. Wall motion is abnormal in this area. Findings are consistent with infarct. No brian-infarct ischemia is appreciated. Pharmacologic ECG was negative for ischemia at the level of heart rate achieved. Gated EF = 30%. The LV is dilated. History: Hypercholesteremia Prior PCI Stress Test Summary: Stress Test Type: Pharmacologic Regadenoson 0.4mg/5ml given IV Baseline Information: Initial Heart Rate: 68 Blood Pressure: 104/62 Stress Information: Stress Time: 4 min 00 sec Test Terminated Due to (primary): As per protocol Maximum Blood Pressure: 96/56 Maximum Heart Rate: 70 Percent Maximum Heart Rate Achieved: 48 Double Product: 6720 METS Reached: 1 Symptoms: No chest symptoms Nuclear Summary: SPECT myocardial perfusion imaging using Tc99m Sestamibi given intravenously was performed at rest and following cardiac stress testing. The resting images were obtained following initial dose of 11.3 mCi. Following stress an additional dose of 34 mCi was given at peak exercise or 30 seconds post regadenoson infusion. 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 * Pharmacologic stress ECG is negative for ischemia at level of heart rate achieved. * No arrhythmias were noted during stress. * Patient had no chest pain during stress. Hemodynamic responses * Normal hemodynamic responses to pharmacologic stress. Study Quality * Technically difficult/limited study. Gated EF % * Gated EF = 30%. Left Ventricle * The left ventricle is dilated. PERFUSION * Gastric uptake obscures adequate interpretation of the inferior wall. * There appears to be a moderately severe intensity perfusion defect involving the inferior wall, inferolateral wall, lateral wall from base to apex which appears fixed. Wall motion is abnormal in this area. Findings are consistent with infarct. * Other segments demonstrate normal perfusion. * PERFUSION Updated by Donna Mcleod on 12/15/2016 3:58:41 PM electronically signed on 12/15/2016 4:03:20 PM with status of Final
--- NOTE | 2016-12-15 16:36 | Discharge Summary ---
Date of Encounter: 12/15/16 Time of Encounter: 16:34 - Discharge Diagnosis (1) Syncope Priority: Primary Status: Acute Qualifiers: Syncope type: unspecified Qualified Code(s): R55 - Syncope and collapse (2) Ischemic cardiomyopathy Priority: Secondary Status: Acute (3) Diabetes Priority: Secondary Status: Acute Qualifiers: Diabetes mellitus type: type 2 Diabetes mellitus complication status: without complication Diabetes mellitus claims adjuster insulin use: without claims adjuster use Qualified Code(s): E11.9 - Type 2 diabetes mellitus without complications - Discharge Medications Home Medications: Aspirin Enteric Coated [Aspirin EC] 81 mg PO DAILY 01/29/15 [History] Atorvastatin Calcium [Lipitor] 80 mg PO HS 01/29/15 [History] Clopidogrel [Plavix] 75 mg PO DAILY 01/29/15 [History] Omeprazole [Prilosec] 20 mg PO DAILY 01/29/15 [History] Cholecalciferol (D-3) [Vitamin D] 1,000 unit PO DAILY 12/13/16 [History] DiphenhydraMINE [Benadryl] 50 mg PO TID PRN 12/13/16 [History] Gabapentin [Neurontin] 900 mg PO TID 12/13/16 [History] GuaiFENesin/Dextromethorphan [Tussin Dm Syrup] 10 ml PO Q4H PRN 12/13/16 [ History] Levothyroxine [Synthroid] 112 mcg PO 0630 12/13/16 [History] Methocarbamol [Robaxin] 500 mg PO QID 12/13/16 [History] Mirtazapine 7.5 mg PO HS 12/13/16 [History] Naproxen [Naprosyn] 500 mg PO BID PRN 12/13/16 [History] Venlafaxine XR (24 HR) [Effexor XR] 75 mg PO DAILY 12/13/16 [History] Allergies/Adverse Reactions: Allergies ciprofloxacin [From Cipro] Allergy (Verified 12/13/16 14:34) See Comments patient unsure of reaction clams Allergy (Verified 12/13/16 14:34) Swelling of Lip/Tongue/Throat Procedures/tests Complete & Pending: Procedures Performed prior 72 hours Category Date Time Status NM kori perf SPECT multi [NM] Routine Exams 12/15/16 06:00 Taken MR head/brain wo con [MR] Routine MRI 12/14/16 19:07 Completed ECG 12 lead ECG [ECG] Routine Y 12/13/16 14:45 Completed EV carotid duplex imaging BI Routine Y 12/15/16 12:34 Completed EV echocardiogram Routine Y 12/14/16 07:00 Completed SP pharm nuclear stress Routine Y 12/15/16 07:00 Completed Date of admission: 12/13/16 17:38 [facility] care physician: [facility] Consults: 12/13/16 21:42 Consult to Physical Therapy [CONS] Routine Comment: Evaluate, develop and implement POC Reason for Consult: Syncope / fall 12/13/16 21:43 Consult to Cardiology [CONS] Routine Comment: Consulting Provider: Cardiology Sofy Reason for Consult: Syncope Call Completed: No 12/14/16 11:42 Consult to Interpret Exam [CONS] Routine Consulting Provider: Vinod Muñoz Consult to Interpret Exam: Interpret EEG Discharging clinician: Tete Schafer Anticipated date of discharge: 12/15/16 - Patient Status Disposition: Home, Self-Care Condition: Fair Functional capacity at discharge: independent ambulation Overall status at discharge: patient is back to baseline - Discharge Instructions Instructions: Syncope (DC), Diabetes Mellitus Type 2 in Adults (DC), Near Syncope (ED) Follow [facility] With: [facility] [Primary Care Provider[facility] - 12/28/16 10:15 am - Diet and Activity Activity: resume usual activities as tolerated Diet: diabetic diet Interval History: Mr. Nina is a 76 year old male with PMHx significant for CAD s/p PCI, hypothyroidism, PTSD, DMII, HTN, tongue CA (remission) and depression who initially presented to the [facility] care after syncopal episode at home. Patient does not have any recollection of the event, he states he was walking out of the house to go to the grocery store when he suddenly fell backward. Event was witnessed by fiance who stated patient lost consciousness for nearly five minutes and arms were shaking and eyes rolled back in head during event. He notes that he was in his normal state of health up until event and denies any new medications. Reports follows with [facility]. Head CT at [facility] inconclusive--questionable small hematoma or hemorrhage vs. artifact, he was sent to [facility] for further evaluation and imaging. Upon arrival to [facility] troponin negative x3. ECG (T wave) changes noted when compared to previous. Patient reports no memory of event. He is a poor historian. cardio and neuro was consulted No significant findings on telemetry since admission, no AVB, pause, arrhythmia noted. NSR with occasional PVC. HR in the 40's noted during nocturnal hours only. No daytime bradycardia seen. Questionable hemorrhage or hematoma vs. artifact at [facility] Head [facility] at [facility] negative for acute process. MRI showed no acute process. Neurology was consulted. Patient had one episode of syncope with few twitching activity and had MRI of brain and EEG both are negative for acute SAILMAKER pathology. Will not recommend anti-epileptic therapy as per neurology. EEG was negative. TTE: EF 45%. There is segmental systolic dysfunction. No significant valvular disease. EF improved compared to previous. EF 35% previously. negtaive for orthostasis Stress test is negtive for ischemia or infarct. carotid doppler was negative for obstrcutive plaque. all the work up is negaive and he may have a vasovagal episode. HE is thus being dc in stable condition Hospital course: Mr. Nina is a 76 year old male - Time Spent with Patient Total time spent providing and/or coordinating discharge services: - Constitutional Vitals: Temp Pulse Resp BP Pulse Ox 97.6 F 58 16 153/80 100 12/15/16 14:48 12/15/16 14:48 12/15/16 14:48 12/15/16 14:48 12/15/16 14:48 General appearance: Present: cooperative, A&O X 3, pleasant, no acute distress, answers questions appropriately Exam: HEENT: Atraumatic, Normocephaly, Mucus Membranes Moist Neck: No JVD, Normal carotid pulses Cardiac: Reg Rate and Rhythm, Normal S1 and S2, No Murmur Lungs: Normal Breath Sounds, No Wheeze, Rales, Rhonchi Neuro: Alert and responsive, No focal deficits noted Abdomen: Soft, Non-Tender Skin: No rashes noted on visualized skin Musculoskeletal: No Chest Wall Tenderness Extremities: No Clubbing, No Cyanosis, No Edema, Normal Pulses
--- NOTE | 2016-12-15 20:04 | Carotid Imaging Report ---
Carotid Duplex Patient Name:Paul Nina Order Number:[id number] Procedure Date:12/15/2016 Date:2Age:76 yrs Gender:Male Lt BP:135 / 75 mmHg Rt.BP:132 / 83 mmHgHeart Rate: Location:[facility] Room #: 3B48 Senior Mechanical Designer:Carmen Royal Referring MD:Ronal Schafer MD staffing director:[facility] Reading MD:Antoine Malave MD Primary Indications:syncope Risk Factors Yes/No Hypercholesterolemia Yes CAD Yes Impressions: Findings: Bilateral carotid system has nonstenotic plaque. Recommendations: After imaging the patient returned to their room. Findings Carotid Duplex: Right: The right proximal common carotid artery has a PSV of 75 cm/s and a EDV of 19 cm/s. The right mid common carotid artery has a PSV of 83 cm/s and a EDV of 18 cm/s. The right distal common carotid artery has a PSV of 74 cm/s and a EDV of 22 cm/s. There is nonstenotic plaque in the right bifurcation with a PSV of 74 cm/s and a EDV of 22 cm/s. There is nonstenotic plaque in the right proximal internal carotid artery with a PSV of 103 cm/s and a EDV of 32 cm/s. The right mid internal carotid artery has a PSV of 116 cm/s and a EDV of 40 cm/s. The right distal internal carotid artery has a PSV of 120 cm/s and a EDV of 33 cm/s. The right eca has a PSV of 108 cm/s and a EDV of 18 cm/s. The right vertebral artery has a PSV of 52 cm/s and a EDV of 17 cm/s. Left: There is nonstenotic plaque in the left proximal common carotid artery with a PSV of 89 cm/s and a EDV of 21 cm/s. There is nonstenotic plaque in the left mid common carotid artery with a PSV of 92 cm/s and a EDV of 20 cm/s. There is nonstenotic plaque in the left distal common carotid artery with a PSV of 84 cm/s and a EDV of 24 cm/s. There is nonstenotic plaque in the left bifurcation with a PSV of 73 cm/s and a EDV of 22 cm/s. The left proximal internal carotid artery has a PSV of 104 cm/s and a EDV of 37 cm/s. The left mid internal carotid artery has a PSV of 103 cm/s and a EDV of 29 cm/s. The left distal internal carotid artery has a PSV of 110 cm/s and a EDV of 34 cm/s. There is nonstenotic plaque in the left eca with a PSV of 125 cm/s and a EDV of 16 cm/s. The left vertebral artery has a PSV of 62 cm/s and a EDV of 24 cm/s. Prior Study: No prior study available for comparison. Carotid Results Right PSV EDV Assessment Proximal CCA 75 19 Normal Mid CCA 83 18 Normal Distal CCA 74 22 Normal Bifurcation 74 22 Non Stenotic Plaque Proximal ICA 103 32 Non Stenotic Plaque Mid ICA 116 40 Normal Distal ICA 120 33 Normal ECA 108 18 Normal Vertebral Artery 52 17 Normal Left PSV EDV Assessment Proximal CCA 89 21 Non Stenotic Plaque Mid CCA 92 20 Non Stenotic Plaque Distal CCA 84 24 Non Stenotic Plaque Bifurcation 73 22 Non Stenotic Plaque Proximal ICA 104 37 Normal Mid ICA 103 29 Normal Distal ICA 110 34 Normal ECA 125 16 Non Stenotic Plaque Vertebral Artery 62 24 Normal Ratio's Right ICA/CCA Ratio: 1.45 ICA/CCA Values: 120/83 Left ICA/CCA Ratio: 1.20 ICA/CCA Values: 110/92 Updated by Antoine Malave MD on 12/15/2016 7:56:45 PM electronically signed on 12/15/2016 7:57:02 PM with status of Final
== END 2016-12-15 17:09 | disposition home or self-care (01) | DRG 312 ==
LOC: 3BNU 14:28 → EMEROO 14:28 → 3BNU 18:07
PROVIDERS: ADMIT Internal Medicine; ATTEND Registered Nurse

== ENCOUNTER 2020-03-11 11:51 | Observation (INO) ==
[2020-03-11] MEDS ORDERED: ceFAZolin 1,000 MG in Water for inj. (sterile) 10 ML IVP ONE (12:40)
[2020-03-11] MEDS ORDERED: *HR* HYDROcodone/Acet 5/325 mg TABLET PO PRN (16:08)
[2020-03-11] MEDS ORDERED: Ondansetron 4 MG/2 ML VIAL IVP PRN (16:08)
[2020-03-11] MEDS ORDERED: Acetaminophen 325 MG TABLET PO PRN (16:08)
[2020-03-11] MEDS ORDERED: Naloxone 0.4 MG/ML INJ IVP PRN (16:08)
[2020-03-11 17:49] LABS: INR 1.2; Prothrombin Time 13.4 Seconds (9.4-12.1)
[2020-03-11 18:04] LABS: Phosphorous 3.1 mg/dL (2.7-4.5)
[2020-03-11 18:05] LABS: BUN/Creatinine Ratio 24 (6-26); Blood Urea Nitrogen 21 mg/dL (8-23); Calcium 9.3 mg/dL (8.6-10.3); Carbon Dioxide 32 mEq/L (23-29); Chloride 101 mEq/L (98-107); Glucose 95 mg/dL (70-105); Osmolality,Calculated 283 (280-300); Sodium 135 mEq/L (136-145); eGFR For African Americans > 60 (> 60); eGFR For Non-African Americans > 60 (> 60)
[2020-03-11] MEDS: 0.9 % Sodium Chloride 1,000 ML IVC SCH (18:07)
[2020-03-11 18:15] LABS: Basophils % 1.1 %; Eosinophils # 0.1 K/mcL (0.0-0.6); Eosinophils % 2.7 %; Hematocrit 36.5 % (37.5-50.1); Hemoglobin 11.3 g/dL (12.9-16.9); Immature Granulocytes % 0.5 % (0-4); Lymphocytes # 1.1 K/mcL (0.6-4.6); Lymphocytes % 28.8 %; Mean Corpuscular Hemoglobin 27.1 pg (28.0-33.3); Mean Corpuscular Volume 87.5 fL (83.0-100.0); Mean Platelet Volume 10.5 fL (9.4-12.4); Monocytes # 0.3 K/mcL (0.0-1.3); Monocytes % 7.5 %; Neutrophils # 2.2 K/mcL (1.6-8.9); Platelet Count 300 K/mcL (140-400); Red Blood Count 4.17 M/mcL (4.19-5.50); Red Cell Distribution Width 15.7 % (11.5-14.5); Segmented Neutrophils % 59.4 %; White Blood Count 3.7 K/mcL (4.3-11.1)
[2020-03-11] MEDS: *HR* Enoxaparin 60 MG/0.6 ML SYRINGE SQ SCH (18:21)
[2020-03-11] MEDS ORDERED: Mirtazapine 15 MG TABLET PO SCH (21:00)
[2020-03-12] MEDS: 0.9 % Sodium Chloride 1,000 ML IVC SCH (05:52)
[2020-03-12] MEDS: *HR* Enoxaparin 60 MG/0.6 ML SYRINGE SQ SCH (05:52)
[2020-03-12] MEDS ORDERED: Cholecalciferol (D-3) 1,000 UNIT (25MCG) TABLET PO SCH (09:00)
[2020-03-12] MEDS ORDERED: lisinopriL 5 MG TABLET PO SCH (09:00)
[2020-03-12] MEDS ORDERED: Spironolactone 25 MG TABLET PO SCH (09:00)
[2020-03-12] MEDS ORDERED: Aspirin Enteric Coated 81 MG Tablet PO SCH (09:00)
[2020-03-12] MEDS ORDERED: Ascorbic Acid 500 MG TABLET PO SCH (09:00)
[2020-03-12] MEDS ORDERED: *HR* Succinylcholine 200 MG/10 ML VIAL IVP ONE (13:58)
[2020-03-12] MEDS ORDERED: *HR* FentaNYL (PF) 100 MCG/2 ML VIAL ONE (13:58)
[2020-03-12] MEDS ORDERED: Ondansetron 4 MG/2 ML VIAL ONE (13:58)
[2020-03-12] MEDS ORDERED: Lidocaine -MPF 2% 2 ML VIAL ONE (13:58)
[2020-03-12] MEDS ORDERED: Dexamethasone 4 MG/ML VIAL ONE (13:58)
[2020-03-12] MEDS ORDERED: *HR* Propofol 200 MG/20 ML VIAL IVP ONE (13:58)
[2020-03-12] MEDS ORDERED: EPHEDrine 50 MG/ML VIAL ONE (14:10)
[2020-03-12 15:14] VITALS: BP 119/66
[2020-03-12] MEDS ORDERED: FLU Vac QV 20-21 (6Month+)/PF 0.5 ML SYRINGE IM ONE (15:58)
[2020-03-13] MEDS ORDERED: *HR* Enoxaparin 30 MG/0.3 ML SYRINGE SQ SCH (06:00)
== END 2020-03-12 16:24 | disposition home or self-care (01) ==
LOC: 3ANU 11:51 → ENDPAV 11:51 → 3ANU 15:02 → ENDPAV 15:09 → 3ANU 15:20
PROVIDERS: ADMIT Internal Medicine Gastroenterology; ATTEND Internal Medicine Gastroenterology